=== PATIENT | female | born 1985 | race Caucasian/White ===

== ENCOUNTER 2017-03-06 18:02 | Inpatient (IN) | payer BC ==
[~2017-03-06] VITALS: Ht 162.6 cm; Wt 67.2 kg
[~2017-03-06 18:02] MED LIST: FERR27TA PO; PREN1TAB49 PO
[2017-03-06 18:31] VITALS: Ht 162.6 cm; Wt 67.2 kg
[2017-03-06 18:32] VITALS: BP 118/68; PULSE 82
[2017-03-06] MEDS ORDERED: LACTATED RINGER'S 1,000 ML IV ONE (19:30)
[2017-03-06] MEDS ORDERED: LACTATED RINGER'S 1,000 ML IV SCH ×2 (19:30→20:46)
--- NOTE | 2017-03-06 20:26 | RADRPT ---
PROCEDURE: Obstetrical ultrasound for biophysical profile CLINICAL INDICATION: Biophysical profile. . TECHNIQUE: Obstetrical ultrasound of the uterus for biophysical profile. Transabdominal views are obtained. COMPARISON: None FINDINGS: Single intrauterine gestation. breathing movement = 2/2 tone = 2/2 motion = 2/2 AC = 2/2 AC = 10.5 cm IMPRESSION: Single intrauterine gestation. Biophysical profile 02/10 RPTAT: AADD .Jamie Adams MD, MD Date Time Electronically viewed and signed by .Jamie Adams MD, on 03/06/2017 20:26 .B/
--- NOTE | 2017-03-06 20:28 | RADRPT ---
PROCEDURE: Obstetrical ultrasound. CLINICAL INDICATION: , evaluation. Pelvic pain. TECHNIQUE: Transabdominal sonographic images of the uterus obtained after first trimester , greater than 14 weeks gestation. Single intrauterine gestation present. COMPARISON: No prior studies are available for comparison. FINDINGS: Single intrauterine gestation. There is a cephalic presentation. Measurements were made in order to determine age. The results are as follows: BPD = 37 weeks 5 day(s) HC = 38 weeks 5 day(s) AC = 37 weeks 1 day(s) FL = 37 weeks 5 day(s) Heart rate = 150 beats per minute The placenta is anterior. There is no evidence for an abruption or placenta previa. Ovaries are not visualized. IMPRESSION: Single intrauterine gestation of approximately 37 weeks 6 days by ultrasound criteria. [place] estimated weight = 3229 g; 58 percentile for gestational age of 37 weeks 4 days. RPTAT: AADD .Jamie Adams MD, MD Date Time Electronically viewed and signed by .Jamie Adams MD, on 03/06/2017 20:28 .B/
--- NOTE | 2017-03-06 20:42 | TRIAGE ---
OB Triage Datetime Report Generated by CPN: 03/06/2017 20:42 Datetime: 03/06/2017 20:18 Membrane Status: Ruptured Datetime: 03/06/2017 20:11 Stage of : OB Triage Membrane Status: Ruptured Membranes Rupture Method: Spontaneous Amniotic Fluid Color: Clear Amniotic Fluid Amount: Moderate Amniotic Fluid Odor: Normal Pool: Positive Nitrazine: Positive Datetime: 03/06/2017 19:09 Stage of : OB Triage Datetime: 03/06/2017 18:27 Stage of : OB Triage Assessment Type: Triage Maternal Assessment Level of Consciousness: Fully Conscious DTR's/Clonus: DTRs 2+; No Clonus Headache: Denies Blurred Vision: No Respiratory Effort: Unlabored; Regular Rhythm; Equal Expansion Breath Sounds, Left: Clear and Equal Breath Sounds, Right: Clear and Equal Nausea/Vomiting: Denies RUQ Epigastric Pain: Denies Facial Edema: None Temperature Route: Axillary Fall Risk Assessment History of Falling: (0) No Secondary Diagnosis: (0) No Ambulatory Aid: (0) Bedrest/Nurse Assist IV Therapy: (0) No Gait: (0) Normal/Bedrest/Immobile Mental Status: (0) Oriented to Own Ability Fall Score: 0 Fall Risk Score Definition: No Risk: No action required Labor Evaluation Frequency: 3-5 Monitor Mode: External Duration (sec)2399: 40-50 Quality: Mild Pattern: Normal: <= 5 Contractions in 10 Minutes Resting Tone [place]: Relaxed Interventions: Sterile Vaginal Exam Heart Rate FHR Baseline Rate: 135 Monitor Mode: External US Variability: Moderate 6-25 bpm Accelerations: 10X10 Decelerations: None Category: Category I Pain Assessment Pain Scale: 7 Pain Presence: Intermittent Pain Type: Cramping; Contraction Pain Location: Back; Perineum Pain Goal: 3 Pain Relief Measures: Comfort Measures Vaginal Exam Dilatation (cms): 1.5 Effacement (%): 80 Station: -2 Exam By: Sue HAGAN Datetime: 03/06/2017 18:25 Time of Arrival: 03/06/2017 17:45 EGA: 37.4 Arrived By: Ambulatory Arrived From: Home Chief Complaint: UC'S STARTED APPROX Q 3MIN, DENIES BLEEDING OR LEAKING OF FLUID Movement: Decreased Contractions: Irregular Contractions: 3-5 Rupture of Membranes: Denies Vaginal Discharge: Denies Recent Sexual Intercouse: Denies Abdominal Trauma: Not Applicable Time Provider Notified: 03/06/2017 20:00 Provider Notified: Dr Gonzales Initial Plan: MONITOR, VE,BPP,EFW
[2017-03-06 20:56] LABS: BASOPHILS % 0.1 % (0.0-2.0); EOSINOPHILS # 0.1 10^3/ul (0.0-0.5); EOSINOPHILS % 0.8 % (0.0-7.0); HEMATOCRIT 33.2 % (37.0-47.0); HEMOGLOBIN 11.8 g/dl (12.0-16.0); LYMPHOCYTES # 1.6 10^3/ul (0.8-2.9); LYMPHOCYTES % 18.4 % (15.0-51.0); MEAN CORPUSCULAR HEMOGLOBIN 30.9 pg (29.0-33.0); MEAN CORPUSCULAR HGB CONC 35.5 g/dl (32.0-37.0); MEAN CORPUSCULAR VOLUME 86.9 fl (82.0-101.0); MEAN PLATELET VOLUME 12.7 fl (7.4-10.4); MONOCYTE # 0.7 10^3/ul (0.3-0.9); MONOCYTES % 8.2 % (0.0-11.0); NEUTROPHILS % 72.2 % (39.0-77.0); PLATELET COUNT 138 10^3/UL (140-415); RED BLOOD COUNT 3.82 10^6/ul (4.20-5.40); RED CELL DISTRIBUTION WIDTH 13.5 % (11.5-14.5); WHITE BLOOD COUNT 8.7 10^3/ul (4.8-10.8)
[2017-03-06] MEDS ORDERED: LIDOCAINE 1% (MPF) 30 ML INJ INJ PRN (21:00)
[2017-03-06] MEDS ORDERED: CARBOPROST 250 MCG INJ IM PRN (21:00)
[2017-03-06] MEDS ORDERED: METHYLERGONOVINE 0.2 MG INJ IM PRN (21:00)
[2017-03-06] MEDS ORDERED: IBUPROFEN 600 MG TAB PO PRN (21:00)
[2017-03-06] MEDS ORDERED: MISOPROSTOL 200 MCG TAB PR PRN (21:00)
[2017-03-06] MEDS ORDERED: OXYTOCIN 30 UNITS/LR 500 ML IV PRN (21:00)
[2017-03-06] MEDS ORDERED: OXYTOCIN 30 UNITS/LR 500 ML IV SCH ×2 (21:00)
[2017-03-06] MEDS ORDERED: AMPICILLIN 2 GM/NS (PMX) 100 ML IV ONE (21:00)
[2017-03-06 21:18] LABS: INR 0.97; PROTIME 12.9 Sec (12.2-14.2)
[2017-03-06 21:19] LABS: PARTIAL THROMBOPLASTIN TIME 32.1 Sec (25.0-35.0)
[2017-03-06] MEDS ORDERED: LACTATED RINGER'S 1,000 ML IV PRN (21:30)
[2017-03-06] MEDS: BUTORPHANOL 2 MG INJ IV PRN ×2 (21:32→23:25)
[2017-03-07] MEDS ORDERED: AMPICILLIN 1 GM/NS (PMX) 50 ML IV SCH (01:00)
[2017-03-07] MEDS ORDERED: MINERAL OIL LIGHT 10 ML VIAL ONE (01:42)
--- NOTE | 2017-03-07 02:34 | HP ---
DATE OF ADMISSION: 03/06/2017 HISTORY OF PRESENT ILLNESS: Ms. Anjana Lara is a 31-year- old, 3, para 2, EDC 03/23/2017, intrauterine at 37 weeks and 5 days' gestational age who presented to triage with spontaneous rupture of membranes. PAST MEDICAL HISTORY: None. MEDICATIONS: vitamins. PAST SURGICAL HISTORY: None. OBSTETRICAL HISTORY: Times 2 vaginal delivery. GYNECOLOGICAL HISTORY: 14, regular, 3-4 days. Denies any sexually transmitted disease. Sexually active with 1 partner. SOCIAL HISTORY: Denies any smoking, drugs, or alcohol. FAMILY HISTORY: None. REVIEW OF SYSTEMS: All within normal except History of Present Illness. PHYSICAL EXAMINATION: HEENT: Within normal limits. LUNGS: CTA bilaterally. CARDIAC: S1, S2. Regular rhythm. ABDOMEN: Gravid and nontender. EXTREMITIES: No calf tenderness. VAGINAL: 8-9, 90, -2 with spontaneous rupture of membranes. heart tracing category 1. TOCO, irregular contractions. ASSESSMENT: Intrauterine at term, in labor. PLAN: Expectant vaginal delivery. Dictated By: Mohan Gonzales MD /gustavo/gera /Document#: [id number]
--- NOTE | 2017-03-07 03:08 | LDN ---
Date/Time of Note Date/Time of Note DATE: 03/07/17 TIME: 03:07 Delivery Summary Weeks of Gestation 37 Placenta Delivered: Spontaneously Meconium: none Episiotomy: No Estimated blood loss: 200 Sponge & Needle done & correct: Yes All needle counts correct: Yes Any foreign bodies felt in the: No Problems: Delivery Information Sex Sex: male Apgars 1 Minute: 9 5 Minute: 9 Suctioning Nose & mouth suctioned at elkin: No Delee suction performed: No Umbilical Cord Umbilical cord with: 3 Vessels Cord presentations: no nuchal cord JEYSON RODARTE MD Mar 07, 2017 03:08
[2017-03-07] MEDS ORDERED: LACTATED RINGER'S 1,000 ML IV* SCH (03:09)
[2017-03-07] MEDS ORDERED: CARBOPROST 250 MCG INJ IM PRN (03:30)
[2017-03-07] MEDS ORDERED: OXYTOCIN 30 UNITS/LR 500 ML IV PRN (03:30)
[2017-03-07] MEDS ORDERED: METHYLERGONOVINE 0.2 MG INJ IM PRN (03:30)
[2017-03-07] MEDS ORDERED: LANOLIN 7 GM TUBE TOP PRN (03:30)
[2017-03-07] MEDS ORDERED: MISOPROSTOL 200 MCG TAB PR PRN (03:30)
[2017-03-07] MEDS ORDERED: BENZOCAINE 20% 56 ML SPRAY TOP PRN (03:30)
[2017-03-07] MEDS ORDERED: ONDANSETRON 4 MG INJ IV PRN (03:30)
[2017-03-07] MEDS ORDERED: ACETAMINOPHEN 325 MG TAB PO PRN (03:30)
[2017-03-07] MEDS ORDERED: OXYCODONE/ASPIRIN (4.88/325) TAB PO PRN ×2 (03:30)
[2017-03-07] MEDS ORDERED: WITCH HAZEL/GLYCERIN PAD PR PRN (03:30)
[2017-03-07] MEDS ORDERED: DIBUCAINE 1% 30 GM OINT PR PRN (03:30)
[2017-03-07 06:40] VITALS: BP 99/53; PULSE 72; RESP 18
[2017-03-07] MEDS: IBUPROFEN 600 MG TAB PO SCH ×4 (06:58→23:39)
[2017-03-07 08:20] VITALS: BP 108/55; PULSE 71; RESP 20
[2017-03-07] MEDS ORDERED: SENNA/DOCUSATE NA (8.6MG/50MG) TAB PO SCH (09:00)
[2017-03-07] MEDS: MAGNESIUM HYDROXIDE 30ML CUP PO SCH ×2 (09:27→20:47)
[2017-03-07 12:30] VITALS: BP 107/60; PULSE 71; RESP 20
[2017-03-07 16:00] VITALS: BP 103/58; PULSE 81; RESP 19
[2017-03-07 19:45] VITALS: BP 103/54; PULSE 84; RESP 20
[2017-03-07 23:45] VITALS: BP 105/58; PULSE 76; RESP 17
--- NOTE | 2017-03-08 02:00 | QN ---
Documentation Comment Progress note day 1 Patient seen and evaluated awake alert oriented 3 no complaints positive ambulation tolerating diet positive flatulence Vital signs stable afebrile Abdomen soft nontender uterine fundus firm below umbilicus Extremity negative edema no calf tenderness Assessment status post vaginal delivery day 1 Plan follow-up CBC and encourage ambulation JEYSON RODARTE MD Mar 08, 2017 02:00
[2017-03-08 04:15] VITALS: BP 98/50; PULSE 84; RESP 18
[2017-03-08] MEDS: IBUPROFEN 600 MG TAB PO SCH ×3 (05:31→18:03)
[2017-03-08 08:16] LABS: BASOPHILS % 0.2 % (0.0-2.0); EOSINOPHILS # 0.1 10^3/ul (0.0-0.5); HEMATOCRIT 33.7 % (37.0-47.0); HEMOGLOBIN 11.3 g/dl (12.0-16.0); LYMPHOCYTES # 2.3 10^3/ul (0.8-2.9); LYMPHOCYTES % 18.6 % (15.0-51.0); MEAN CORPUSCULAR HEMOGLOBIN 29.7 pg (29.0-33.0); MEAN CORPUSCULAR HGB CONC 33.5 g/dl (32.0-37.0); MEAN CORPUSCULAR VOLUME 88.7 fl (82.0-101.0); MEAN PLATELET VOLUME 12.7 fl (7.4-10.4); MONOCYTE # 0.8 10^3/ul (0.3-0.9); MONOCYTES % 6.5 % (0.0-11.0); NEUTROPHILS % 73.3 % (39.0-77.0); PLATELET COUNT 143 10^3/UL (140-415); RED CELL DISTRIBUTION WIDTH 14.1 % (11.5-14.5); WHITE BLOOD COUNT 12.5 10^3/ul (4.8-10.8)
[2017-03-08 08:23] VITALS: BP 107/52; PULSE 72; RESP 20
[2017-03-08] MEDS: MAGNESIUM HYDROXIDE 30ML CUP PO SCH ×2 (09:13→21:36)
[2017-03-08] MEDS: SENNA/DOCUSATE NA (8.6MG/50MG) TAB PO PRN ×2 (09:14→21:36)
[2017-03-08 12:06] VITALS: BP 105/55; PULSE 82; RESP 20
[2017-03-08 16:39] VITALS: BP 120/81; PULSE 62; RESP 18
[2017-03-08 20:00] VITALS: BP 97/51; PULSE 73; RESP 18
[2017-03-09] MEDS: IBUPROFEN 600 MG TAB PO SCH ×3 (00:14→12:50)
[2017-03-09 04:15] VITALS: BP 94/48; PULSE 82; RESP 20
[2017-03-09 08:30] VITALS: BP 111/56; PULSE 75; RESP 18
[2017-03-09] MEDS: MAGNESIUM HYDROXIDE 30ML CUP PO SCH (09:00)
--- NOTE | 2017-03-09 09:37 | PD.PPDC ---
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
--- NOTE | 2017-03-09 09:40 | DS ---
Date/Time of Note Date/Time of Note DATE: 03/09/17 TIME: 09:39 Obstetrical Discharge Record Final Diagnosis Final Diagnosis: Term delivered Vaginal Delivery Obstetrical Delivery: Spontaneous Condition on Discharge Physical Assessment Voiding: Yes Bowel Movement: Yes Breast: Soft, non-tender, Filling Fundus: Firm Calf Tenderness: No Patient Condition: Good JEYSON RODARTE MD Mar 09, 2017 09:40
== END 2017-03-09 14:05 | disposition home or self-care (01) | DRG 775 ==
LOC: OBT 18:02 → L-D 18:03 → OBT 20:15 → L-D 21:12 → PP1 03-07 06:02
PROVIDERS: ADMIT Obstetrics & Gynecology; ATTEND Obstetrics & Gynecology
PROC: 4A1HX4Z Monitoring of Products of Conception, Cardiac Electrical Activity, External Approach (ICD-10-PCS; 2017-03-06)
PROC: 10E0XZZ Delivery of Products of Conception, External Approach (ICD-10-PCS; principal; 2017-03-07)
DX: O80 Encounter for full-term uncomplicated delivery (principal); Z37.0 Single live birth; Z3A.37 37 weeks gestation of pregnancy
CPT/HCPCS: 36415; 76815; 76818; 85025; 85610; 85730; 86592; 86900; 86901; 87340; 96360; G0463; J0290; J0595; J2590; J7120